=== PATIENT | female | born 1985 | race Caucasian/White ===

== ENCOUNTER 2019-10-13 17:58 | Inpatient (IN) | payer OTHER, SELFPAY ==
[2019-10-13] VITALS (7 sets, daily range): BP systolic 116–136; BP diastolic 72–87; PULSE 87–107
--- NOTE | 2019-10-13 18:32 | LDADM ---
This patient, Kandy Mitchell, was admitted to Labor/Delivery/Recovery 109 on 10/13/19 at 17:58. Plans for labor, pain management and were discussed with patient. Patient/family oriented to hospital policies and general routines including ID bracelet, bed and alarms, visiting hours, pain management, procedures, bathroom and other care routines, personal items, smoking policy, room service/diet and guest tray routines, security routines, and visiting hours. Patient/Family are encouraged to report perceived risks to care and to ask questions if they do not understand what they are told or what they should do. See OBIX for further documentation.
[2019-10-13 19:03] LABS: Basophils Percent Auto 0.2 % (0.2-1.2); Eosinophils Absolute Auto 0.1 K/mm3 (0-0.3); Eosinophils Percent Auto 1.3 % (0-4.4); Hematocrit 38.1 % (37.0-47.0); Hemoglobin 12.6 g/dL (12.0-15.0); Immature Granulocyte Absolute 0.05 K/mm3 (0.00-0.031); Immature Granulocyte Percent A 0.5 % (0-0.5); Lymphocytes Absolute Auto 1.92 K/mm3 (0.9-3.2); Mean Corpuscular HGB Conc 33.1 g/dl (32-36); Mean Corpuscular Hemoglobin 30.3 pg (26-34); Mean Corpuscular Volume 91.6 fl (80-100); Mean Platelet Volume 10.1 fl (7.4-10.4); Monocytes Absolute Auto 0.7 K/mm3 (0.1-0.6); Neutrophils Absolute Auto 6.8 K/mm3 (1.3-6.7); Platelet Count Result 233 k/mm3 (150-375); Red Blood Count 4.16 M/mm3 (4.2-5.4); Red Cell Distribution Width 14.5 % (11.5-14.5); White Blood Count 9.6 K/mm3 (4.5-10.0)
[2019-10-13] MEDS: DINOPROSTONE 10 MG VAG INSERT VAGINAL (19:33)
[2019-10-13] MEDS: ZOLPIDEM TARTRATE 5 MG TABLET PO (22:47)
[2019-10-14] VITALS (93 sets, daily range): BP systolic 108–154; BP diastolic 38–111; PULSE 67–218; RESP 16–18; TEMP 36.6–37.6; O2SAT 88–100; BMI 39.4
[2019-10-14] MEDS: LACTATED RINGERS 1,000 ML 125 ML IV CONT ×2 (05:49→08:31)
[2019-10-14 07:21] LABS: Rapid Plasma Reagin Non-Reactive (NonReactive)
--- NOTE | 2019-10-14 07:50 | WPDOBADMIT ---
Obstetrics - Admit Note Admission Note: Late entry from 0750 on 10/14/19 record reviewed. Additions to the history and/or subsequent changes in the physical findings follow. 33 y/o at 39 1/7 weeks here desiring induction of labor. uncomplicated. GBS neg. Had Cervidil last night, has been withdrawn. She is receiving oxytocin. AVSS NST reactive TOCO: contractions irregularly ABD soft, nontender, gravid, vertex EXT nontender Cervix 2/80/-2. AROM with clear fluid. A: IUP a term, desiring induction of labor. P: Oxytocin. Anticipate .
[2019-10-14] MEDS: ONDANSETRON INJ 4 MG/2 ML VIAL IV PUSH (08:30)
--- NOTE | 2019-10-14 12:40 | PM.OBPRVD ---
OB - Delivery Note Procedure Delivery date: 10/14/19 Procedure: Induction of labor with Induction method: AROM and per pitocin protocol Delivery monitor: external FHT and external uterine Route of delivery: Laceration description: Perineal - 2nd Degree Delivery repair: vicryl (3-0 Vicryl) Specimen: Yes (cord blood) Estimated blood loss (mL): 65 Anesthesia type: Epidural Disposition: PACU Complications: None Narrative: Nhnbit-ivf-exss-old 3 para 1011 at 39-,1/7 weeks gestation who presented to the hospital for induction of labor. Cervidil was placed overnight. The following morning it was withdrawn and oxytocin was administered intravenously. Amniotomy was performed with return of clear fluid. She received an epidural for pain control. Her labor progressed and her cervix dilated completely. She pushed with good effort and delivered the infant's head to the perineum, followed by the body. The nose and mouth were bulb suctioned. After a delay, the cord was clamped and cut. The infant was handed off the field. Cord blood was collected. The placenta delivered spontaneously and was grossly normal in appearance. The usual 3 vessel cord was noted. A second degree midline perineal laceration was sustained. This was reapproximated using 3 0 Vicryl in the usual layered fashion. Excellent hemostasis resulted as did excellent reapproximation of the normal anatomy. Needle and instrument counts were correct. The patient was taken to recovery room in stable condition. The went to the nursery in stable condition. I was present and scrubbed for the entire delivery. [place] [facility] Date of : 10/14/19 Time of : 11:32 Weeks of gestation at delivery: 39 Infant gender: Male Weight (pounds): 7 presentation: vertex position: Left Occiput Anterior Placenta delivery description: Spontaneous and Normal Configuration cord vessel description: 3 Vessels score one minute: 8 score five minutes: 9
--- NOTE | 2019-10-14 12:43 | PM.OBDSVD ---
DS: Diagnosis Discharge Diagnosis (1) Normal delivery at term: Code(s): O80 - Encounter for full-term uncomplicated delivery Status: Acute OB - DS: Summary OB Procedures : None OB Procedures Intrapartum: Spontaneous Vag Delivery OB Procedures: : None DS: Data Data Completed and Pending Labs on day of discharge: Labs from last 24 hours 10/13/19 10/13/19 10/13/19 18:55 18:55 18:55 WBC 9.6 RBC 4.16 L Hgb 12.6 Hct 38.1 MCV 91.6 MCH 30.3 MCHC 33.1 RDW 14.5 Plt Count 233 MPV 10.1 Immature Gran % (Auto) 0.5 Neut % (Auto) 71.0 Lymph % (Auto) 20.0 [place] % (Auto) 7.0 Eos % (Auto) 1.3 Baso % (Auto) 0.2 Lymph # (Auto) 1.92 [place] # (Auto) 0.7 H Eos # (Auto) 0.1 Baso # (Auto) 0.0 Abs Immat Gran (auto) 0.05 H Absolute Neuts (auto) 6.8 H Absolute Nucleated RBC 0.0 Nucleated RBC % 0.0 RPR Non-reactive Blood Type O Positive Antibody Screen Negative Discharge Plan Discharge Attending physician on discharge: Gamaliel Hdez Discharging Clinician: Gamaliel Hdez Patient Disposition: Home, Self-Care Activity: pelvic rest Diet: regular Discharge Instructions: Call or return if temperature above 100.4? F, increased abdominal pain, increased vaginal bleeding or any new problems. Stand Alone Forms: General Discharge Information Follow-up/Referrals: Gamaliel Hdez MD [Physician] - (6 weeks) Discharge Medications: New ibuprofen 600 mg tablet 600 mg PO Q6H PRN (Reason: cramps) Qty: 30 RF: 0 Continued PNV cmb#95-ferrous fumarate-FA [] 28 mg iron- 800 mcg Tablet 1 tablet PO DAILY RF: 0 Date of admission: 10/13/19 17:58 Primary Care Provider: Ronit,Marshal Avila Admitting Provider: Gamaliel Hdez Attending physician on admission: Gamaliel Hdez
[2019-10-14] MEDS: IBUPROFEN 600 MG TABLET PO ×2 (13:55→20:51)
[2019-10-14] MEDS: WITCH HAZEL 40 PADS 1 PAD TOPICAL (13:56)
[2019-10-14] MEDS: BENZOCAINE 20% AER SPR (*SP) 56 GM CAN 1 SPRAY TOPICAL (13:56)
--- NOTE | 2019-10-14 15:00 | PC.NURSE ---
Addendum entered by Isis Tay RN 10/15/19 16:20: time done 1530 Original Note: Consulted with patient, mother reports she is using a nipple shield due to flat nipples. Mother states she had a breast reduction surgery several years ago. Mother attempted to breastfeed a few days with first child and switched to bottle due to latch issues. Discussed and the possible impact of breast reduction surgery. Mother states she goal is to breast and bottle feed and planed on formula use early on. Suggested to put to breast each feeding, focusing on correct latch and stimulation to stimulate milk supply. Suggested mother initiate pumping if she continues to use nipple shield. Reviewed feeding cues, frequencies, duration of feedings, feeding elimination flow sheet, and signs of adequate intake. Demonstrated stimulation techniques to wake for feeding. Assisted with to breast with shield. Reviewed positioning/alignment in football, holding breast in C hold and guided asymmetrical latch on. Discussed the rational for each. was able to latch correctly. nursed eagerly with steady draws occasional swallowing noted, for short bursts followed with long pausing. Reviewed signs of a correct latch, effective nursing and suck swallow ratio. was able to maintain latch without discomfort to mother. Nipple care reviewed. Advised to stimulate infant to keep awake and nursing effectively. Instructed mother to call out for RN assistance if she is unable to latch infant for feeding or she has discomfort with nursing. Instructed feeding should be initiated three hours from start of last feeding or if feeding cues are noted before. Mother voiced understanding of information shared.
--- NOTE | 2019-10-14 17:48 | PC.NURSE ---
Patient transferred to post room # via 283 per wheelchair. Support person present. Oriented to unit, room, information board, rooming in, admission packet and security measures. Patient verbalizes understanding.
[2019-10-15] MEDS: IBUPROFEN 600 MG TABLET PO ×2 (03:05→09:21)
[2019-10-15 05:17] LABS: Hematocrit 33.5 % (37.0-47.0); Hemoglobin 11.2 g/dL (12.0-15.0)
[2019-10-15 08:00] VITALS: BP 125/86; PULSE 90; RESP 18; TEMP 36.7; O2SAT 99
--- NOTE | 2019-10-15 09:07 | WPDANLDPN2 ---
Anes-Prog Note L&D Date/Time: 10/15/19 09:07 Comfortable throughout: labor and delivery Neuraxial method: epidural Epidural/Spinal procedure site: clean & non-tender Neuro status: Neuro function grossly intact. Cardiovascular status: normal Respiratory status: normal Airway patency: baseline Mental status: baseline Post-Op hydration status: normal Vital Signs: Last Vital Signs Temp 98.1 F 10/15/19 08:00 Pulse 90 10/15/19 08:00 Resp 18 10/15/19 08:00 BP 125/86 10/15/19 08:00 Pulse Ox 99 10/15/19 08:00 Post-procedural complaints: none Patient feedback: Patient satisfied with anesthetic care.
[2019-10-15] MEDS: MULTIVIT/MIN/PREN/FOL AC/IRON TABLET 1 TAB PO (09:21)
--- NOTE | 2019-10-15 10:00 | PC.NURSE ---
consult with pt., mother states she puts to breast each feeding with shield, she will then supplement 20-25 mls EBM/formula followed with 15 minutes of pumping. Mother states she plans to continue this for 1 week, then evaluation milk supply and may switch to formula feeding. Discussed may require more supplementation and to increase as he desires. Mother has a pump for home use and will call with questions. Mother is feeding as required and waking infant to feed if needed. is currently meeting outcomes for weight, output, jaundice and feeding frequencies. Mother states she feels confident to continue currect feeding plan at home. Reviewed transition to breast milk, signs of adequate intake, and engorgement/relief. Instructed to call ICP if intake/output less than required. Reviewed regular medications mother is taking. Information provided per Karmen. Reviewed community resources on the [employer] website and in the Mom/Baby guide. Information on outpatient services provided. Mother has no further questions at this time.
--- NOTE | 2019-10-15 12:01 | PM.OBPNVD ---
OB - PN: Subj Subjective Date/time seen: 10/15/19 12:01 Narrative: Pain OK. Desires circumcision for son. Also would like to go home today. OB - PN: Obj Data Labs CBC & Chem 7: 10/15/19 04:53 Labs: Laboratory Results - last 24 hr 10/15/19 04:53 Hgb 11.2 L Hct 33.5 L OB - PN A/P Plan Comments: A: PPD#1, doing well. P: Reviewed circ. Home to f/u 6 weeks. Exam Psych: Other: AVSS ABD soft, nontender, fundus firm EXT nontender
[2019-10-18 11:28] VITALS: BP 126/75; PULSE 79; RESP 18; TEMP 36.4
== END 2019-10-15 15:12 | disposition home or self-care (01) | DRG 807 ==
LOC: ANHLDR 10-14 12:44 → ANHOB2 10-14 15:31
PROVIDERS: Admitting Provider Obstetrics & Gynecology; PCP Family Medicine; Visit Provider Obstetrics & Gynecology
DX: O99.62 Diseases of the digestive system complicating childbirth (principal); Z37.0 Single live birth; Z3A.39 39 weeks gestation of pregnancy; K21.9 Gastro-esophageal reflux disease without esophagitis; O70.1 Second degree perineal laceration during delivery
CPT/HCPCS: 36415; 85014; 85018; 85025; 86592; 86850; 86900; 86901; A9270; J2405; J2590; J2795; J7120